=== PATIENT | male | born 1995 | race Caucasian/White ===

== ENCOUNTER 2018-02-12 10:46 | Emergency (ER) | payer OTHER, SELFPAY ==
[2018-02-12 10:46] VITALS: BP 140/68; PULSE 88; RESP 16; TEMP 36.9; O2SAT 97; BMI 23.0
--- NOTE | 2018-02-12 10:58 | CT_ITS ---
STUDY: CT CHEST WITH CONTRAST REASON FOR EXAM: Male, 22 years old. Left-sided pain. History of 15 foot fall. RADIATION DOSAGE (If Supplied By Facility): CTDIvol = ( 9.19 ) mGy, DLP = ( 664.82 ) mGycm TECHNIQUE: Transaxial imaging was performed following intravenous administration of 100 ml of Isovue 300 contrast material. Multiplanar coronal and sagittal images were reformatted. Individualized dose optimization techniques were used for this CT. COMPARISON: None. FINDINGS: The lungs are normal. There is no demonstrated pleural abnormality. Normal heart and pericardium. Normal mediastinum. Normal hilar regions. Normal enhanced pulmonary arteries. Normal aorta arch and descending thoracic aorta. Nondisplaced fracture involving the posterior aspect of the left eighth rib. There is no demonstrated abnormality of the visualized upper abdomen. CT/Chest WITH Contrast IMPRESSION: Nondisplaced left eighth rib fracture. Electronically Signed: Juvenal Briceno MD at 12:25 EDT Tel [phone], Service support ,
--- NOTE | 2018-02-12 10:58 | CT_ITS ---
STUDY: CT ABDOMEN AND PELVIS WITH CONTRAST REASON FOR EXAM: Male, 22 years old. Left-sided rib pain. History of a 15 foot fall. RADIATION DOSAGE (If Supplied By Facility): CTDIvol = ( 9.19 ) mGy, DLP = ( 664.82 ) mGycm TECHNIQUE: Transaxial images were obtained from the dome of the diaphragm to the symphysis pubis without oral contrast. 100 ml of Isovue 300 contrast was administered. Sagittal and coronal images were reconstructed. Individualized dose optimization techniques were used for this CT. COMPARISON: Comparison is made with prior examination of June 26, 2014. FINDINGS: The visualized lung bases are unremarkable. The visualized portions of the heart are within normal limits. Normal liver. Normal gallbladder and extrahepatic biliary system. Normal spleen. Normal pancreas. Normal bilateral adrenal glands. Normal right kidney. Normal left kidney. Normal visualized stomach. Normal small intestine. Normal colon. The appendix is visualized and appears normal. Normal abdominal aorta. Normal inferior vena cava. Normal retroperitoneum. Normal urinary bladder. Normal abdominal wall. Nondisplaced posterior left eighth rib fracture. CT/Abdomen/Pelvis W IV Cont ONLY IMPRESSION: Nondisplaced posterior left eighth rib fracture. Electronically Signed: Juvenal Briceno MD at 12:25 EDT Tel [phone], Service support ,
--- NOTE | 2018-02-12 11:01 | ED.DCSUM_ITS ---
- ER Visit Summary Date of Service: 02/12/18 Chief Complaint: Chest pain, abdominal pain History of Present Illness: The patient is a 22 M presents to the emergency department with chest and abdominal pain. The patient's symptoms started 9 days ago. He was working on a roof. He was a 15 feet in the air. He states that a 2 x 4 broke loose and he fell to the ground. He landed striking his left leg and left side. He hit his head but did not lose consciousness. 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 He states yesterday, he went back to work and is doing light duty. He states he reached above his head and felt like something pop in his left chest. Since then he has had significant increase in pain. The pain does radiate to his abdomen. He is on no anticoagulants. He does have history of underlying depression, but has been taking anti-inflammatories with improvement of the symptoms. He has had no vomiting and has felt mildly nauseated. Physical Examination: Vital signs reviewed General: Well-nourished, well-developed Head: Normocephalic, atraumatic Eyes: Pupils equal and reactive, extraocular muscles intact Neck, supple, no lymphadenopathy Heart: Regular rate and rhythm Respiratory: No distress, clear bilaterally, market tenderness over the left lateral ribs without step-off or crepitus Abdomen: Soft, tender in the left upper quadrant without guarding, nondistended , no peritoneal signs Back: Nontender Extremities: Nontender, no edema, no cords Skin: Normal color no rash Neuro: Alert and oriented, no focal or lateralizing deficits Test Results: [] Emergency Department Course and Treatment: The patient was given IV Toradol which improved his symptoms. With his mechanism, I did want to rule out intra- abdominal injury, pneumothorax, pulmonary contusion, or other dangerous process. He was tender over the ribs and into his abdomen. IV was established. Patient underwent CT of the chest, abdomen, and pelvis. There is evidence of rib fracture, but no pneumothorax or pulmonary contusion. The patient declined any analgesics for home. He declined antispasmodics. I did staff counselor him on prolonged course of rib fractures, risk for pneumonia, continuing deep breathing exercises, and reasons to return. He is comfortable with this plan of care. He will continue anti-inflammatories at home. He will follow-up with his primary care in 1 week for reevaluation or return to the emergency department with worsening symptoms. Treatment Plan: [] Disposition: Discharge Impression:. Fall from height 2. Left rib fracture This note was generated with [employer] dictation software. It may contain incorrect words, spelling, and punctuation that were not noted in review of the chart prior to signing ED Disposition - Plan for ED Patient: Chief Complaint: Chest Other Instructions: ED Fx Rib Referrals: Esa Domínguez MD [Primary Care Provider] -
[2018-02-12] MEDS: Ketorolac 15 MG/ML Vial IV (11:13)
[2018-02-12 11:23] LABS: Absolute Lymphocyte Count 2.15 X10^3/ul (0.83-4.51); Absolute Neutrophil Count 3.9 X10^3/uL (2.0-7.7); Basophil# 0.03 X10^3/uL; Basophil% 0.4 % (0-1); Eosinophil# 0.05 X10^3/uL; Eosinophils% 0.7 % (0-5); Hematocrit 43.6 % (40-54); Hemoglobin 14.6 g/dl (13.0-16.5); Lymphocyte # 2.15 X10^3/ul (4.0); Lymphocyte % 31.4 % (19-41); Mean Corp Hgb Conc 33.5 g/gl (32-36); Mean Corpuscular Hgb 29.6 pg (27.0-32.0); Mean Corpuscular Volume 88.4 fL (80-94); Mean Platelet Vol. 9.2 fl (6.2-12.0); Monocyte# 0.67 X10^3/uL; Monocyte% 9.8 % (0-10); Neutrophil # 3.93 X10^3/uL (2.7-7.7); Neutrophil % 57.6 % (47-70); Platelet Count 256 K/mm3 (150-450); RBC Distribution Width CV 12.5 % (11.6-14.6); RBC Distribution Width SD 39.9 fl (35.1-43.9); Red Blood Count 4.93 M/mm3 (4.6-6.2); White Blood Count 6.8 K/mm3 (4.4-11.0)
[2018-02-12 11:24] LABS: POSITIVE COUNT NO; POSITIVE DIFFERENTIAL NO; POSITIVE MORPHOLOGY NO
[2018-02-12 11:38] LABS: Anion Gap 6 (5-15); BUN 15 mg/dL (7-18); BUN/Creat Ratio 16.8 RATIO (10-20); Calcium,Total 9.2 mg/dL (8.5-10.1); Chloride 107 mmol/L (98-107); EST Glomerular Filtration Rate 113 mL/min (>60); Est Glom Filt Rate - Afr Amer 136 mL/min (>60); Estimated Creatinine Clearance 136.29 ml/min; Glucose 75 mg/dL (74-106); Potassium 4.5 mmol/L (3.5-5.1); Sodium Level 141 mmol/L (136-145)
[2018-02-12 12:36] VITALS: BP 120/76; PULSE 70; RESP 14; O2SAT 99
== END 2018-02-12 12:40 | disposition home or self-care (01) ==
PROVIDERS: Emergency Provider Emergency Medicine; Family Provider Pediatrics; PCP Pediatrics
DX: S22.32XA Fracture of one rib, left side, initial encounter for closed fracture (principal); W13.2XXA Fall from, out of or through roof, initial encounter; Y93.9 Activity, unspecified; Y92.9 Unspecified place or not applicable; F32.9 Major depressive disorder, single episode, unspecified; Z79.899 Other long term (current) drug therapy; Z72.0 Tobacco use
CPT/HCPCS: 71260; 74177; 80048; 85025; 96374; 99283; Q9967; A4216

== ENCOUNTER 2018-05-06 16:19 | Emergency (ER) | payer OTHER, SELFPAY ==
[2018-05-06 16:21] VITALS: BP 128/72; PULSE 78; RESP 14; TEMP 36.8; O2SAT 98; BMI 24.0
[2018-05-06 17:39] LABS: AST(SGOT) 39 U/L (15-37); Absolute Lymphocyte Count 2.46 X10^3/ul (0.83-4.51); Absolute Neutrophil Count 3.2 X10^3/uL (2.0-7.7); Alanine Aminotransfer ALT/SGPT 37 U/L (16-61); Albumin, Serum 4.1 g/dL (3.2-5.0); Alkaline Phosphatase 80 U/L (45-117); Anion Gap 7 (5-15); BUN 14 mg/dL (7-18); BUN/Creat Ratio 16.3 RATIO (10-20); Basophil# 0.06 X10^3/uL; Basophil% 0.9 % (0-1); Bilirubin, Direct 0.13 mg/dL (0.00-0.30); Calcium,Total 9.6 mg/dL (8.5-10.1); Chloride 105 mmol/L (98-107); Creatinine, Serum 0.86 mg/dL (0.70-1.30); EST Glomerular Filtration Rate 118 mL/min (>60); Eosinophil# 0.04 X10^3/uL; Eosinophils% 0.6 % (0-5); Est Glom Filt Rate - Afr Amer 143 mL/min (>60); Globulin 3.5 g/dL (2.2-4.2); Glucose 90 mg/dL (74-106); Hematocrit 38.9 % (40-54); Hemoglobin 13.4 g/dl (13.0-16.5); Lymphocyte # 2.46 X10^3/ul (4.0); Lymphocyte % 37.9 % (19-41); Mean Corp Hgb Conc 34.4 g/gl (32-36); Mean Corpuscular Hgb 30.2 pg (27.0-32.0); Mean Corpuscular Volume 87.6 fL (80-94); Mean Platelet Vol. 9.6 fl (6.2-12.0); Monocyte# 0.74 X10^3/uL; Monocyte% 11.4 % (0-10); Neutrophil # 3.18 X10^3/uL (2.7-7.7); Platelet Count 292 K/mm3 (150-450); Potassium 3.9 mmol/L (3.5-5.1); Protein, Total 7.6 g/dL (6.4-8.2); RBC Distribution Width CV 12.2 % (11.6-14.6); RBC Distribution Width SD 38.3 fl (35.1-43.9); Red Blood Count 4.44 M/mm3 (4.6-6.2); Sodium Level 141 mmol/L (136-145); White Blood Count 6.5 K/mm3 (4.4-11.0)
[2018-05-06 17:41] LABS: POSITIVE COUNT NO; POSITIVE DIFFERENTIAL NO; POSITIVE MORPHOLOGY NO
--- NOTE | 2018-05-06 17:48 | CT_ITS ---
STUDY: CT ABDOMEN AND PELVIS WITH CONTRAST REASON FOR EXAM: Male, 22 years old. Abdominal pain. Dark stool. Patient stepped on by a cow 4 days ago RADIATION DOSAGE (If Supplied By Facility): CTDIvol = ( 17.17 ) mGy, DLP = ( 801.37 ) mGycm TECHNIQUE: Transaxial images were obtained from the dome of the diaphragm to the symphysis pubis without oral contrast. 100 ml of Isovue 300 contrast was administered. Sagittal and coronal images were reconstructed. Individualized dose optimization techniques were used for this CT. COMPARISON: February 12, 2018. FINDINGS: The visualized lung bases are unremarkable. The visualized portions of the heart are within normal limits. Normal liver. Normal gallbladder and extrahepatic biliary system. Normal spleen. Normal pancreas. Normal bilateral adrenal glands. Normal right kidney. Normal left kidney. Normal visualized stomach. Normal small intestine. Normal colon. The appendix is visualized and appears normal. Normal abdominal aorta. Normal inferior vena cava. Normal retroperitoneum. Normal urinary bladder. There is no free fluid in the abdomen or pelvis. Normal abdominal wall. There is a healing left ninth rib fracture. CT/Abdomen/Pelvis W IV Cont ONLY IMPRESSION: No solid organ injury. No acute fracture. Healing left rib fracture. Electronically Signed: Reynaldo Zhong MD at 18:38 EDT , Service support ,
[2018-05-06 17:54] LABS: Prothrombin Time (Protime)PT. 13.2 SECONDS (11.7-14.9)
--- NOTE | 2018-05-06 18:00 | RAD_ITS ---
STUDY: X-RAY - RIGHT FEMUR REASON FOR STUDY: Male, 22 years old. Fall. Bruising. TECHNIQUE: Radiological exam, femur, minimum 2 views COMPARISON: None. FINDINGS: Normal visualized femur. There is no fracture seen. There is medial soft tissue swelling. RAD/Femur Min 2 Views IMPRESSION: Normal x-ray examination of the femur. Soft tissue swelling. Electronically Signed: Reynaldo Zhong MD at 18:40 EDT , Service support ,
[2018-05-06 18:33] VITALS: PULSE 94; RESP 12; O2SAT 100
--- NOTE | 2018-05-06 19:03 | ED.VISSUMM ---
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 He has had pain since then but it is gradually getting better. He was concerned because he had one episode of a bowel movement yesterday that was dark. No gross blood and no vomiting blood. He is still having normal bowel movements since then which were normal in color. No fever or back pain. His right femur pain is somewhat worse with walking. He denies paresthesias or any weakness in his leg. He did not hit his head or lose consciousness. Physical Examination: No signs of head trauma. No cervical spine tenderness. Heart tones regular without murmur. Lungs are clear bilaterally. Abdomen is soft with minimal tenderness on the right lateral and lower quadrant but no rebound or guarding. Overlying skin looks normal. Minimal tenderness midshaft right femur with ecchymosis but compartments are soft. No significant swelling. Strong pulses distally. No pain with passive stretch. Test Results: He has no evidence of compartment syndrome in his right eye. He has strong distal pulses and no paresthesias. The injury was over 1 week ago. His plain film was negative for fracture. He certainly does have a hematoma but no evidence of significant compartment swelling. He will continue to use ice and rest for this. In terms of his abdominal pain and dark stool, all of his labs are within normal limits. No anemia and he has had normal bowel movement since then. He does not want a rectal examination and makes an informed refusal of this. His CT abdomen/pelvis with IV contrast is negative for organ injury. He did not want pain medication. Emergency Department Course and Treatment: He feels well on reexamination. No evidence of an acute surgical abdomen. He would like to follow-up as an outpatient which I think is safe. He was discharged in stable condition. Treatment Plan: Follow-up outpatient Disposition: Home stable condition Impression: Initial encounter right thigh hematoma secondary to getting kicked by a riding bowl, initial encounter for abdominal wall contusion This note was generated with [employer] dictation software. It may contain incorrect words, spelling, and punctuation that were not noted in review of the chart prior to signing ED Disposition - Plan for ED Patient: Chief Complaint: General Illness Instructions: Abdominal Pain, ED Hematoma Referrals: Care Physician,No Primary [Primary Care Provider] -
[2018-05-06 19:18] VITALS: BP 114/78
== END 2018-05-06 19:19 | disposition home or self-care (01) ==
LOC: ED 17:30
PROVIDERS: Emergency Provider Emergency Medicine
DX: S70.11XA Contusion of right thigh, initial encounter (principal); S30.1XXA Contusion of abdominal wall, initial encounter; V80.918A Animal-rider injured in other transport accident, initial encounter; Y93.9 Activity, unspecified; Y92.9 Unspecified place or not applicable
CPT/HCPCS: 73552; 74177; 80048; 80076; 85025; 85610; 99284; J7030; Q9967; A4216

== ENCOUNTER → 2021-07-17 | Outpatient (CLI) | payer SELFPAY | END | disposition home or self-care (01) | LOC: LABSPEC 11:12 | PROVIDERS: Referring Provider Nurse Practitioner Family; Visit Provider Nurse Practitioner Family | DX: L02.416 Cutaneous abscess of left lower limb (principal) | CPT/HCPCS: 87070; 87077; 87186; 87205 ==